=== PATIENT | male | born 1955 | race Two or more races ===

== ENCOUNTER 2018-03-12 10:47 | Emergency (ER) | payer OTHER ==
[~2018-03-12] VITALS: Ht 175.3 cm; Wt 72.6 kg
[2018-03-12 11:12] VITALS: BP 122/77
[2018-03-12 11:27] LABS: APPEARANCE,URINE CLEAR; BILIRUBIN, URINE NEGATIVE (NEGATIVE); COLOR,URINE PALE YELLOW; GLUCOSE, URINE (UA) NEGATIVE (NEGATIVE); KETONES,URINE NEGATIVE (NEGATIVE); LEUKOCYTE ESTERASE ,URINE NEGATIVE (NEGATIVE); NITRITE,URINE NEGATIVE (NEGATIVE); PH,URINE 6 (4.5-8.0); PROTEIN,URINE NEGATIVE (NEGATIVE); UROBILINOGEN,URINE NORMAL MG/DL (0.0-1.0)
[2018-03-12] MEDS ORDERED: DOXYCYCLINE MO100 MG ORAL (12:16)
[2018-03-12] MEDS ORDERED: IBUPROFEN400 MG ORAL (12:16)
[2018-03-12 12:20] VITALS: BP 122/77
--- NOTE | 2018-03-13 07:38 | Emergency Room Report ---
History of Present Illness General Chief Complaint: General Complaint Source: Patient Present Illness HPI Patient is a 62-year-old male who presented after increased skin rash. The patient had noticed increased blistering to his.. Area. Patient denies any prior history of similar rash. He denies prior history of diabetes. He denies any fever. He reports having a moderate dysuria. He denies any vomiting or diarrhea. The patient noticed gradual progression of discomfort. Allergies: Coded Allergies: No Known Allergies (Unverified , 03/12/18) Patient History Past Medical History: see triage record Reviewed Nursing Documentation: PMH: Agreed; PSxH: Agreed Nursing Documentation-PMH Past Medical History: No Stated History Review of Systems All Other Systems: negative except mentioned in HPI Physical Exam Vital Signs Date Time Temp Pulse Resp B/P (MAP) Pulse Ox O2 Delivery O2 Flow Rate FiO2 03/12/18 10:51 98.2 74 16 122/77 95 Room Air 98.2 General Appearance: well appearing, no apparent distress, alert, GCS 15, non- toxic Head: normocephalic, atraumatic ENT: hearing grossly normal, normal voice Neck: full range of motion, supple Respiratory: no respiratory distress, speaking full sentences Musculoskeletal: normal inspection, no calf tenderness Neurologic: normal inspection, alert, oriented x3, normal gait Psychiatric: mood/affect normal Skin: other - suprapubic follicular swelling, slight erythema, no fluctuance Medical Decision Making Diagnostic Impression: Primary Impression: Folliculitis ER Course Patient presented for skin rash. Differential diagnosis included was not limited to folliculitis, herpes, Fourniere's gangrene, abscess, hidradenitis suppuritiva among others. Patient has a benign exam and does not appear to require any further imaging or laboratory testing at this time. Urinalysis showed no evidence of urinary tract infection. The patient was given doxycycline for presumed folliculitis. Patient advised have area rechecked in the next 2 days. Patient is advised to return if any worsening condition or if any changes in status that are concerning. This report is dictated with [employer] posting specialist software which may occasionally lead to discrepancies related to use of this software. Last Vital Signs Date Time Temp Pulse Resp B/P (MAP) Pulse Ox O2 Delivery O2 Flow Rate FiO2 03/12/18 12:20 98.2 74 16 122/77 95 Room Air 98.2 Status: improved Disposition: HOME, SELF-CARE Condition: Stable Scripts Ibuprofen* (MOTRIN*) 400 Mg Tablet 400 MG ORAL Q8H, #30 TAB 0 Refills Prov: Royer Sen MD 03/12/18 Doxycycline Monohydrate* (DOXYCYCLINE MONOHYDRATE*) 100 Mg Capsule 100 MG ORAL Q12H, #14 CAP 0 Refills Prov: Royer Sen MD 03/12/18 Referrals: NOT CHOSEN IPA/MD,REFERRING Patient Instructions: Folliculitis Royer Sen MD Mar 13, 2018 07:38
== END 2018-03-12 12:20 | disposition home or self-care (01) ==
LOC: EMR 11:13
DX: L73.9 Follicular disorder, unspecified (principal)
CPT/HCPCS: 81003; 99283

== ENCOUNTER → 2018-08-12 | Emergency (ER) | payer OTHER ==
[~2018-08-12] VITALS: Ht 167.6 cm; Wt 90.7 kg
[~2018-08-12] MED LIST: DOXYCYCLINE MO100 MG ORAL; IBUPROFEN400 MG ORAL; LEVAQUIN750 MG ORAL; PROMETHAZINE-C118 M1 ORAL
--- NOTE | 2018-08-12 15:21 | NUR ---
ED Nurse Note: Pt came in from home due to coughing and generalized weakness x 1 month. Pain 5/10 kari. AOx4, VSS. Will cont to monitor.
[2018-08-12 15:22] VITALS: BP 106/79
--- NOTE | 2018-08-12 15:42 | Emergency Room Report ---
History of Present Illness General Chief Complaint: Upper Respiratory Illness Source: Patient Present Illness HPI 63-year-old male presents to the emergency department complaining of persistent 5/10 in severity painful cough and feeling short of breath with wheezing times one month. Patient denies fevers or chills. He reports increase in feeling tired. He denies chest pain, heart palpitations, dizziness, headaches or syncope. Patient denies significant past medical history the patient denies pain at this time. Denies recent travel. no appreciable ill contacts. Denies pain at this time. Allergies: Coded Allergies: No Known Allergies (Unverified , 03/12/18) Patient History Past Medical History: see triage record Past Surgical History: none Pertinent Family History: none Reviewed Nursing Documentation: PMH: Agreed; PSxH: Agreed Nursing Documentation-PMH Past Medical History: No Stated History Review of Systems All Other Systems: negative except mentioned in HPI Physical Exam Vital Signs Date Time Temp Pulse Resp B/P (MAP) Pulse Ox O2 Delivery O2 Flow Rate FiO2 08/12/18 15:11 98.2 70 20 106/79 98 Room Air Sp02 EP Interpretation: reviewed, normal General Appearance: no apparent distress, alert, GCS 15, non-toxic Head: normocephalic, atraumatic Eyes: bilateral eye normal inspection, bilateral eye PERRL ENT: hearing grossly normal, normal voice Neck: full range of motion Respiratory: chest non-tender, lungs clear, normal breath sounds, speaking full sentences Cardiovascular #1: regular rate, rhythm, no edema Gastrointestinal: non tender, soft Musculoskeletal: back normal, gait/station normal, normal range of motion, non- tender Neurologic: alert, oriented x3, responsive, motor strength/tone normal, sensory intact, speech normal, grossly normal Psychiatric: judgement/insight normal Skin: normal color, no rash, warm/dry, well hydrated Lymphatic: no adenopathy Medical Decision Making PA Attestation Dr. stewart is my supervising Physician whom patient management has been discussed with. Diagnostic Impression: Primary Impression: Pneumonia Qualified Codes: J18.1 - Lobar pneumonia, unspecified organism ER Course 63-year-old male presents to the emergency department complaining of persistent 5/10 in severity painful cough and feeling short of breath with wheezing times one month. Patient denies fevers or chills. He reports increase in feeling tired. He denies chest pain, heart palpitations, dizziness, headaches or syncope. Patient denies significant past medical history the patient denies pain at this time. Denies recent travel. no appreciable ill contacts. Denies pain at this time. Ddx considered but are not limited to URI, pneumonia, PE, strep pharyngitis, meningitis. Vital signs: Pt. is afebrile, the remaining VS are WNL H&PE are most consistent with URI- no meningeal signs, oropharynx is not involved, no evidence of bacterial infection at this time. ORDERS: -CBC,CMP, CK, Troponin: unremarkable ED INTERVENTIONS: None required at this time. DISCHARGE: At this time pt. is stable for d/c to home. Will provide printed patient care instructions, and any necessary prescriptions. Care plan and follow up instructions have been discussed with the patient prior to discharge. Labs Test 08/12/18 13:38 White Blood Count 10.3 K/UL (4.8-10.8) Red Blood Count 5.40 M/UL (4.70-6.10) Hemoglobin 15.9 G/DL (14.2-18.0) Hematocrit 48.3 % (42.0-52.0) Mean Corpuscular Volume 90 FL (80-99) Mean Corpuscular Hemoglobin 29.4 PG (27.0-31.0) Mean Corpuscular Hemoglobin Concent 32.8 G/DL (32.0-36.0) Red Cell Distribution Width 12.8 % (11.6-14.8) Platelet Count 221 K/UL (150-450) Mean Platelet Volume 8.1 FL (6.5-10.1) Neutrophils (%) (Auto) 65.6 % (45.0-75.0) Lymphocytes (%) (Auto) 20.5 % (20.0-45.0) Monocytes (%) (Auto) 7.4 % (1.0-10.0) Eosinophils (%) (Auto) 4.8 % (0.0-3.0) Basophils (%) (Auto) 1.7 % (0.0-2.0) Sodium Level 139 MMOL/L (136-145) Potassium Level 3.9 MMOL/L (3.5-5.1) Chloride Level 103 MMOL/L (98-107) Carbon Dioxide Level 25 MMOL/L (21-32) Anion Gap 11 mmol/L (5-15) Blood Urea Nitrogen 13 mg/dL (7-18) Creatinine 1.0 MG/DL (0.55-1.30) Estimat Glomerular Filtration Rate > 60 mL/min (>60) Glucose Level 102 MG/DL (74-106) Calcium Level 8.9 MG/DL (8.5-10.1) Total Bilirubin 0.3 MG/DL (0.2-1.0) Aspartate Amino Transf (AST/SGOT) 19 U/L (15-37) Alanine Aminotransferase (ALT/SGPT) 43 U/L (12-78) Alkaline Phosphatase 88 U/L (46-116) Total Creatine Kinase 99 U/L (26-308) Troponin I 0.000 ng/mL (0.000-0.056) Total Protein 7.7 G/DL (6.4-8.2) Albumin 3.7 G/DL (3.4-5.0) Globulin 4.0 g/dL Albumin/Globulin Ratio 0.9 (1.0-2.7) EKG Diagnostic Results EP Interpretation: Dr. Hurtado Rate: normal - 71 bpm Rhythm: NSR ST Segments: no acute changes ASA given to the pt in ED: No PA Scribe Text This Interpretation was scribed by NITIN Walsh. Chest X-Ray Diagnostic Results Chest X-Ray Diagnostic Results : Chest X-Ray Ordered: Yes # of Views/Limited/Complete: 1 View EP Interpretation: Yes NITIN Xray: Interpretation reviewed, by supervising MD, and agrees with findings. Interpretation: no consolidation, no pneumothorax, no acute cardiopulmonary disease, other - abnormal- preliminary questionable left lower lobe effusion Impression: Other - abnormal- preliminary questionable left lower lobe effusion Last Vital Signs Date Time Temp Pulse Resp B/P (MAP) Pulse Ox O2 Delivery O2 Flow Rate FiO2 08/12/18 15:22 98.2 70 20 106/79 98 Room Air Disposition: HOME, SELF-CARE Condition: Stable Scripts Codeine/Promethazine Hcl* (PROMETHAZINE-CODEINE SYRUP*) 118 Ml Syrup 5 ML ORAL Q6H PRN for For Cough, #120 ML 0 Refills Prov: Carli Walsh 08/12/18 Levofloxacin* (LEVAQUIN*) 750 Mg Tablet 750 MG ORAL DAILY for 7 Days, #7 TAB Prov: Carli Walsh 08/12/18 Patient Instructions: Upper Respiratory Infection, Adult Additional Instructions: Take medications as directed. Follow up with a Primary Care Provider in 3-5 days, even if your symptoms have resolved. --Please review list of primary care clinics, if you do not already have a primary care provider Return sooner to ED if new symptoms occur, or current symptoms become worse. - Please note that this Emergency Department Report was dictated using [employer] sh[employer] technology software, occasionally this can lead to erroneous entry secondary to interpretation by the dictation equipment. Carli Walsh Aug 12, 2018 15:42
[2018-08-12 15:58] LABS: BASOPHILS % (AUTO) 1.7 % (0.0-2.0); EOSINOPHILS % (AUTO) 4.8 % (0.0-3.0); HEMATOCRIT 48.3 % (42.0-52.0); HEMOGLOBIN 15.9 G/DL (14.2-18.0); LYMPHOCYTES % (AUTO) 20.5 % (20.0-45.0); MEAN CORPUSCULAR VOLUME 90 FL (80-99); MONOCYTES % (AUTO) 7.4 % (1.0-10.0); NEUTROPHILS % (AUTO) 65.6 % (45.0-75.0); PLATELET COUNT 221 K/UL (150-450); RED CELL DISTRIBUTION WIDTH 12.8 % (11.6-14.8); WHITE BLOOD COUNT 10.3 K/UL (4.8-10.8)
[2018-08-12 16:04] LABS: ANION GAP 11 mmol/L (5-15); BLOOD UREA NITROGEN 13 mg/dL (7-18); CALCIUM 8.9 MG/DL (8.5-10.1); CARBON DIOXIDE 25 MMOL/L (21-32); CHLORIDE 103 MMOL/L (98-107); POTASSIUM 3.9 MMOL/L (3.5-5.1); SODIUM 139 MMOL/L (136-145)
[2018-08-12 16:11] LABS: ALANINE AMINOTRANSFERASE 43 U/L (12-78); ALBUMIN 3.7 G/DL (3.4-5.0); ALBUMIN/GLOBULIN RATIO 0.9 (1.0-2.7); ALKALINE PHOSPHATASE 88 U/L (46-116); ASPARTATE AMINO TRANSFERASE 19 U/L (15-37); BILIRUBIN,TOTAL 0.3 MG/DL (0.2-1.0); CREATINE KINASE 99 U/L (26-308)
--- NOTE | 2018-08-12 16:54 | Diagnostic Imaging Report ---
EXAM: XR Chest, 1 View CLINICAL HISTORY: COUGH TECHNIQUE: Frontal view of the chest. COMPARISON: No relevant prior studies available. FINDINGS: Lungs: No confluent consolidation. Pleural space: Unremarkable. No pneumothorax. Heart: Mild cardiomegaly. Mediastinum: Prominent kodi Bones/joints: No acute fracture. IMPRESSION: No confluent consolidation.
== END | disposition home or self-care (01) ==
LOC: EMR 15:30
DX: J18.1 Lobar pneumonia, unspecified organism (principal)
CPT/HCPCS: 36415; 71045; 80053; 82550; 84484; 85025; 93005; 99284

== ENCOUNTER 2018-09-13 12:16 | Emergency (ER) | payer OTHER ==
[~2018-09-13] VITALS: Ht 170.2 cm; Wt 90.7 kg
--- NOTE | 2018-09-13 12:44 | NUR ---
ED Nurse Note: patient walked into ED from home c/o upper respiratory infection, congestion, coughing for 1 month,
[2018-09-13] MEDS ORDERED: Benzonatate 100mg Perles ORAL ONE (13:00)
[2018-09-13] MEDS ORDERED: Albuterol/Ipratropium 3ml neb HHN ONE ×2 (13:00→14:00)
--- NOTE | 2018-09-13 13:17 | Emergency Room Report ---
History of Present Illness General Chief Complaint: Upper Respiratory Illness Source: Patient Present Illness HPI 63-year-old male patient presents the ER complaining of cough and breathing difficulties times 1 month. Patient was previously seen here 1 month ago and discharged home with antibiotics and cough medicine to treat pneumonia. Reports symptoms have been present since that time. Reports dry cough. Reports cough worse at night. Denies history of HI or asthma. Reports chest pain that is reproducible with cough. Denies chest pain at rest. Denies history of high blood pressure or smoking. Denies fever, chest pain, shortness of breath. Denies recent travel. Denies sick contacts at home. Reports to not receive flu vaccine this year. Allergies: Coded Allergies: No Known Allergies (Unverified , 03/12/18) Patient History Past Medical History: see triage record Reviewed Nursing Documentation: PMH: Agreed; PSxH: Agreed Nursing Documentation-PMH Past Medical History: No Stated History Review of Systems All Other Systems: negative except mentioned in HPI Physical Exam Vital Signs Date Time Temp Pulse Resp B/P (MAP) Pulse Ox O2 Delivery O2 Flow Rate FiO2 09/13/18 12:34 99.0 83 20 117/80 93 Room Air Sp02 EP Interpretation: reviewed, normal General Appearance: well appearing, no apparent distress, alert, GCS 15, non- toxic Head: normocephalic, atraumatic Eyes: bilateral eye normal inspection, bilateral eye PERRL ENT: hearing grossly normal, normal pharynx, no angioedema, normal voice, uvula midline, moist mucus membranes Neck: full range of motion, no meningismus Respiratory: lungs clear, no rhonchi, no respiratory distress, no accessory muscle use, speaking full sentences, wheezing Cardiovascular #1: regular rate, rhythm, no edema Cardiovascular #2: 2+ radial (R), 2+ radial (L) Musculoskeletal: back normal, digits/nails normal, gait/station normal, normal range of motion, non-tender Neurologic: alert, oriented x3, responsive, motor strength/tone normal, sensory intact Psychiatric: mood/affect normal Skin: no rash Medical Decision Making PA Attestation Dr. Hurtado is my supervising Physician whom patient management has been discussed with. Diagnostic Impression: Primary Impression: Bronchitis Additional Impression: Atypical pneumonia ER Course Pt presents to ED c/o cough and breathing difficulties. DDX considered but are not limited to asthma, viral URI, influenza, bronchitis, pneumonia, CHF, pneumothorax. No rhonchi or rales, patient afebrile, low suspicion for pneumonia at this time , does not require x-rays or imaging. no tachycardia, no recent travel, low suspicion for PE per wells criteria. VITAL SIGNS are WNL, patient is afebrile. Ordered breathing treatment and medication. ER COURSE Patient provided with prednisone and cough medication. Duoneb breathing treatment provided. Patient reports symptoms improved following initial breathing treatment however requesting second breathing treatment, provided to patient. Following second breathing treatment patient states no longer having difficulty with breathing. Patient is resting comfortably in no acute distress. Chest x-ray appears improved from last time however due to continued symptoms will cover patient with azithromycin for atypical pneumonia. Will provide patient with Tamiflu to cover for possible influenza. Discussed patient care with Dr. Hurtado, agrees with assessment and treatment plan. ER precautions given. DISCHARGE: -Rx given for Prednisone. First dose provided in the ER begin taking tomorrow. -Rx provided for Albuterol MDI. -Rx provided for Tessalon Perles Rx provided for Tamiflu Rx provided for azithromycin At this time pt is stable for d/c to home. Patient is resting comfortably in no acute distress, nontoxic appearing, able to answer questions without difficulty. Patient to take medications as instructed Will provide with patient care instructions and any necessary prescriptions. Care plan and follow-up instructions provided. Patient instructed to follow-up with primary care provider in 3 - 5 days. Patient questions asked and answered. Patient reports understanding and agreement to treatment plan. ER precautions given. Patient instructed to return to ER immediately for any new or worsening of symptoms including but not limited to increasing SOB, persistent fever. - Please note that this Emergency Department Report was dictated using [employer] sales executive technology software, occasionally this can lead to erroneous entry secondary to interpretation by the dictation equipment. Chest X-Ray Diagnostic Results Chest X-Ray Diagnostic Results : Chest X-Ray Ordered: Yes # of Views/Limited/Complete: 1 View Indication: Chest Pain EP Interpretation: Yes NITIN Xray: Interpretation reviewed, by supervising MD, and agrees with findings. Interpretation: no consolidation, no effusion, no pneumothorax, no acute cardiopulmonary disease Impression: No acute disease NITIN Scribe Text Guero Wharton PA-C Last Vital Signs Date Time Temp Pulse Resp B/P (MAP) Pulse Ox O2 Delivery O2 Flow Rate FiO2 1/30/19 12:34 99.0 83 20 117/80 93 Room Air Status: improved Disposition: HOME, SELF-CARE Condition: Stable Scripts Azithromycin* (ZITHROMAX*) 250 Mg Tablet 250 MG ORAL DAILY, #6 TAB 0 Refills Take two tables once daily for 1 day, then one tablet once daily for 4 days. Prov: Dimitrios Wharton 09/13/18 Benzonatate* (TESSALON PERLE*) 100 Mg Capsule 100 MG ORAL THREE TIMES A DAY, #20 PERLE Prov: Dimitrios Wharton.Sandro 09/13/18 Oseltamivir Phosphate (Tamiflu) 75 Mg Capsule 75 MG ORAL TWICE A DAY for 5 Days, #10 CAP Prov: Dimitrios Wharton 09/13/18 Albuterol Sulfate* (ALBUTEROL SULFATE MDI*) 8.5 Gm Hfa.aer.ad 2 PUFF INH Q6H, #1 INH 0 Refills Prov: Dimitrios Wharton 09/13/18 Prednisone* (PREDNISONE*) 20 Mg Tablet 40 MG ORAL DAILY for 4 Days, #8 TAB Prov: Dimitrios Wharton 09/13/18 Patient Instructions: Acute Bronchitis, [id number], Community-Acquired Pneumonia, Adult, [id number], Influenza, Adult, [id number] Additional Instructions: Followup with primary care provider in 1-2 days. Discuss referral to pulmonology. Take medications as directed. Patient questions asked and answered. ER precautions given, patient instructed to return to ER immediately for any new or worsening of symptoms. Dimitrios Wharton Sep 13, 2018 13:17
[2018-09-13 13:25] VITALS: BP 117/80
--- NOTE | 2018-09-13 14:19 | Diagnostic Imaging Report ---
Indication: Cough Comparison: 08/12/2018 A single view chest radiograph was obtained. Findings: No definite infiltrate or pulmonary vascular congestion identified. The kodi appear prominent likely vascular in nature. The heart is enlarged. The aorta is mildly enlarged consistent with atherosclerotic vascular disease. The bones are osteopenic. Impression: No acute disease
[2018-09-13] MEDS ORDERED: ALBUTEROL SULF8.5 GM INH (14:40)
[2018-09-13] MEDS ORDERED: TESSALON PERLE100 MG ORAL (14:40)
[2018-09-13] MEDS ORDERED: ZITHROMAX250 MG ORAL (14:40)
[2018-09-13] MEDS ORDERED: TAMIFLU75 MG ORAL (14:40)
[2018-09-13] MEDS ORDERED: PREDNISONE20 MG ORAL (14:40)
--- NOTE | 2018-09-13 14:50 | NUR ---
ED Nurse Note: Pt is cleared for discharge per ERMD. Discharge instrcution/paper/ prescription given and explained to the patient, patient verbalized understanding. pt is alert and oriented x4, ambulated out of ED steady gait with all belongigns. pt is stable for DC. VSS. pt ID band removed.
[2018-09-13 16:10] VITALS: BP 117/80
== END 2018-09-13 14:50 | disposition home or self-care (01) ==
LOC: EMR 13:00
DX: J40 Bronchitis, not specified as acute or chronic (principal); J18.9 Pneumonia, unspecified organism
CPT/HCPCS: 71045; 94664; 99284; J7512; J7620

== ENCOUNTER 2018-10-02 17:01 | Emergency (ER) | payer OTHER ==
[~2018-10-02] VITALS: Ht 172.7 cm; Wt 90.7 kg
[~2018-10-02 17:01] MED LIST changes: +ALBUTEROL SULF8.5 GM INH; +PREDNISONE20 MG ORAL; +TAMIFLU75 MG ORAL; +TESSALON PERLE100 MG ORAL; +ZITHROMAX250 MG ORAL
--- NOTE | 2018-10-02 17:20 | NUR ---
ED Nurse Note: PT WALKED IN TO ER TODAY FROM HOME. AOX4. PT C/O PERSISTENT COUGH X 2 MONTHS. PT STATES THIS IS HIS THIRD VISIT TO ER. PT WAS LAST DISCHARGE WITH RX FOR LEVAQUIN AND COUGH SYRUP BUT STATES SYMPTOMS ARE UNRELIEVED DESPITE COMPLIANCE WITH MEDICATIONS. WHEEZING AUSCULTATED IN ALL LOBES. NO SIGNS OF RESPIRATORY DISTRESS OR RETRACTIONS NOTED.
[2018-10-02 17:22] VITALS: BP 122/84
[2018-10-02] MEDS ORDERED: Albuterol/Ipratropium 3ml neb HHN ONE (17:30)
--- NOTE | 2018-10-02 17:45 | Emergency Room Report ---
History of Present Illness General Chief Complaint: Upper Respiratory Illness Source: Patient (Dimitrios Wharton) Present Illness HPI 63-year-old male patient presents the ER complaining of cough and wheezing for the past 2 weeks. Patient previously seen in the ER twice for similar symptoms. Reports symptoms partially resolved however returned recently. States that he follow with his primary care provider was given breathing medications. States that he completed the medication 6 days ago and has not taken anything since that time. Denies fever, chest pain, abdominal pain. Reports cough with sputum. Denies recent travel. denies smoking. Patient is requesting nebulizer machine. (Dimitrios Wharton) Allergies: Coded Allergies: No Known Allergies (Unverified , 03/12/18) Patient History Past Medical History: see triage record Reviewed Nursing Documentation: PMH: Agreed; PSxH: Agreed (Dimitrios Wharton) Nursing Documentation-PMH Past Medical History: No History, Except For (Dimitrios Wharton) Review of Systems All Other Systems: negative except mentioned in HPI (Dimitrios Wharton) Physical Exam Vital Signs Date Time Temp Pulse Resp B/P (MAP) Pulse Ox O2 Delivery O2 Flow Rate FiO2 10/02/18 17:09 98.6 76 20 120/85 95 Room Air 10/02/18 17:31 21 Sp02 EP Interpretation: reviewed, normal General Appearance: well appearing, no apparent distress, alert, GCS 15, non- toxic Head: normocephalic, atraumatic Eyes: bilateral eye normal inspection, bilateral eye PERRL ENT: hearing grossly normal, normal pharynx, no angioedema, normal voice, uvula midline, moist mucus membranes Neck: full range of motion Respiratory: lungs clear, normal breath sounds, no rhonchi, no respiratory distress, no accessory muscle use, speaking full sentences, wheezing Cardiovascular #1: regular rate, rhythm, no edema Cardiovascular #2: 2+ radial (R), 2+ radial (L) Gastrointestinal: non tender, soft, no mass, non-distended, no guarding, no rebound Genitourinary: no CVA tenderness Musculoskeletal: back normal, digits/nails normal, gait/station normal, normal range of motion, non-tender, no calf tenderness, Merle's Sign negative Neurologic: alert, oriented x3, responsive, motor strength/tone normal, sensory intact Skin: no rash (Dimitrios Wharton) Medical Decision Making PA Attestation Dr. Villaseñor is my supervising Physician whom patient management has been discussed with. (Dimitrios Wharton) Diagnostic Impression: Primary Impression: Chronic bronchitis Qualified Codes: J42 - Unspecified chronic bronchitis Additional Impressions: Bronchospasm Eosinophilia ER Course Pt presents to ED c/o cough and wheezing. DDX considered but are not limited to asthma, viral URI, influenza, bronchitis, pneumonia, PE, WA. Low suspicion for PE per well's criteria. VITAL SIGNS are WNL, patient is afebrile. Ordered breathing treatment and medication. ER COURSE Patient provided with prednisone and cough medication. Duoneb breathing treatment provided. Following treatment patient states breathing symptoms have improved however requesting second breathing treatment. CBC and CMP unremarkable, no elevation in magnesium. EKG shows no ST elevations or atrial fibrillation, no tachycardia , chest x-ray negative for acute disease, no focal consolidation consistent with pneumonia, CXR consistent with previous visits, low suspicion of cardiac etiology of symptoms, does not require cardiac workup at this time. Patient denies chest pain. Suspicion for WA or PE. Provided with albuterol breathing treatment. Following second breathing treatment patient reports symptoms have improved. Lung sounds improved auscultation, wheezing still noted however patient has no difficulty breathing. Okay for outpatient follow-up and treatment. Advised patient to follow-up with primary care provider to get referral to pulmonology specialist. Will provide patient with medication for cough and breathing symptoms and ER precautions given. DISCHARGE: -Rx given for Prednisone. -Rx provided for Albuterol MDI and HHN Rx provided for Qvar Rx provided for guaifenesin Rx provided for nebulizer machine At this time pt is stable for d/c to home. Patient is resting comfortably in no acute distress, nontoxic appearing, able to answer questions without difficulty. Patient to take medications as instructed Will provide with patient care instructions and any necessary prescriptions. Care plan and follow-up instructions provided. Patient instructed to follow-up with primary care provider in 3 - 5 days. Patient questions asked and answered. Patient reports understanding and agreement to treatment plan. ER precautions given. Patient instructed to return to ER immediately for any new or worsening of symptoms including but not limited to increasing SOB, persistent fever. - Please note that this Emergency Department Report was dictated using [employer] urologist technology software, occasionally this can lead to erroneous entry secondary to interpretation by the dictation equipment. Labs Test 10/02/18 18:54 White Blood Count 10.5 K/UL (4.8-10.8) Red Blood Count 5.15 M/UL (4.70-6.10) Hemoglobin 15.2 G/DL (14.2-18.0) Hematocrit 45.5 % (42.0-52.0) Mean Corpuscular Volume 88 FL (80-99) Mean Corpuscular Hemoglobin 29.4 PG (27.0-31.0) Mean Corpuscular Hemoglobin Concent 33.3 G/DL (32.0-36.0) Red Cell Distribution Width 12.7 % (11.6-14.8) Platelet Count 202 K/UL (150-450) Mean Platelet Volume 7.8 FL (6.5-10.1) Neutrophils (%) (Auto) 62.1 % (45.0-75.0) Lymphocytes (%) (Auto) 21.1 % (20.0-45.0) Monocytes (%) (Auto) 8.0 % (1.0-10.0) Eosinophils (%) (Auto) 7.6 % (0.0-3.0) Basophils (%) (Auto) 1.2 % (0.0-2.0) Sodium Level 137 MMOL/L (136-145) Potassium Level 3.8 MMOL/L (3.5-5.1) Chloride Level 103 MMOL/L (98-107) Carbon Dioxide Level 24 MMOL/L (21-32) Anion Gap 10 mmol/L (5-15) Blood Urea Nitrogen 16 mg/dL (7-18) Creatinine 1.1 MG/DL (0.55-1.30) Estimat Glomerular Filtration Rate > 60 mL/min (>60) Glucose Level 111 MG/DL (74-106) Calcium Level 8.3 MG/DL (8.5-10.1) Magnesium Level 2.0 MG/DL (1.8-2.4) Total Bilirubin 0.3 MG/DL (0.2-1.0) Aspartate Amino Transf (AST/SGOT) 16 U/L (15-37) Alanine Aminotransferase (ALT/SGPT) 32 U/L (12-78) Alkaline Phosphatase 91 U/L (46-116) Total Protein 7.6 G/DL (6.4-8.2) Albumin 3.5 G/DL (3.4-5.0) Globulin 4.1 g/dL Albumin/Globulin Ratio 0.9 (1.0-2.7) (Dimitrios Wharton P.A.) ER Course Please see above notes. Patient discussed in detail. I agree with evaluation and treatment plan. (Mike Villaseñor MD) EKG Diagnostic Results Rate: normal Rhythm: NSR ST Segments: no acute changes ASA given to the pt in ED: No PA Scribe Text Guero Wharton PA-C (Dimitrios Wharton P.A.) Rhythm Strip Diag. Results EP Interpretation: yes Rate: 73 Rhythm: NSR, no PVC's, no ectopy PA Scribe Text Guero Wharton PA-C (Dimitrios Wharton P.A.) Chest X-Ray Diagnostic Results Chest X-Ray Diagnostic Results : Chest X-Ray Ordered: Yes # of Views/Limited/Complete: 1 View Indication: Chest Pain EP Interpretation: Yes PA Xray: Interpretation reviewed, by supervising MD, and agrees with findings. Interpretation: no consolidation, no effusion, no pneumothorax, no acute cardiopulmonary disease Impression: No acute disease PA Scribe Text Guero Wharton PA-C (Dimitrios Wharton P.A.) Last Vital Signs Date Time Temp Pulse Resp B/P (MAP) Pulse Ox O2 Delivery O2 Flow Rate FiO2 10/02/18 17:40 81 18 96 Room Air 21 10/02/18 17:22 98.5 122/84 Status: improved (Dimitrios Wharton P.A.) Disposition: HOME, SELF-CARE Condition: Stable Scripts Guaifenesin* (ADULT WAL-TUSSIN*) 100 Mg/5 Ml Liquid 5 ML ORAL Q4H, #118 ML Prov: Dimitrios Wharton P.A. 10/02/18 Albuterol Sulfate* (ALBUTEROL SULFATE MDI*) 8.5 Gm Hfa.aer.ad 2 PUFF INH Q6H, #1 INH 0 Refills Prov: Dimitrios Wharton P.A. 10/02/18 Albuterol Sulfate* (ALBUTEROL SULFATE HHN*) 2.5 Mg/3 Ml Vial.neb 3 ML INH Q6H PRN for Shortness of Breath, #30 EA 0 Refills Prov: Dimitrios Wharton 10/02/18 Nebulizer (ALTERA NEBULIZER) 1 Each Each EACH , #1 Prov: Dimitrios Wharton 10/02/18 Beclomethasone Dipropionate 40MCG Oral Inh (QVAR 40*) 7.3 Gm Aer.w.adap 1 PUFF INH TWICE A DAY for 30 Days, #1 PACK 0 Refills Prov: Dimitrios Wharton 10/02/18 Prednisone* (PREDNISONE*) 20 Mg Tablet 40 MG ORAL DAILY for 4 Days, #8 TAB Prov: Dimitrios Wharton 10/02/18 Referrals: [facility],REFERRING (PCP) Patient Instructions: Chronic Bronchitis Additional Instructions: Followup with primary care provider in 3 -5 days. Discussed referral to pulmonology specialist. Take medications as directed. Patient questions asked and answered. ER precautions given, patient instructed to return to ER immediately for any new or worsening of symptoms. Dimitrios Wharton Oct 02, 2018 17:45 Mike Villaseñor MD Oct 03, 2018 03:11
[2018-10-02] MEDS ORDERED: Albuterol ud Inhalation HHN ONE (18:15)
--- NOTE | 2018-10-02 18:57 | NUR ---
ED Nurse Note: BLOOD DRAWN AND SENT TO LAB.
--- NOTE | 2018-10-02 19:01 | NUR ---
ED Nurse Note: REPORT GIVEN TO RUIZ SOLANO.
[2018-10-02 19:10] VITALS: BP 128/81
[2018-10-02 19:19] LABS: BASOPHILS % (AUTO) 1.2 % (0.0-2.0); EOSINOPHILS % (AUTO) 7.6 % (0.0-3.0); HEMATOCRIT 45.5 % (42.0-52.0); HEMOGLOBIN 15.2 G/DL (14.2-18.0); LYMPHOCYTES % (AUTO) 21.1 % (20.0-45.0); MEAN CORPUSCULAR VOLUME 88 FL (80-99); NEUTROPHILS % (AUTO) 62.1 % (45.0-75.0); PLATELET COUNT 202 K/UL (150-450); RED BLOOD COUNT 5.15 M/UL (4.70-6.10); RED CELL DISTRIBUTION WIDTH 12.7 % (11.6-14.8); WHITE BLOOD COUNT 10.5 K/UL (4.8-10.8)
[2018-10-02 19:27] LABS: ANION GAP 10 mmol/L (5-15); BLOOD UREA NITROGEN 16 mg/dL (7-18); CALCIUM 8.3 MG/DL (8.5-10.1); CARBON DIOXIDE 24 MMOL/L (21-32); CHLORIDE 103 MMOL/L (98-107); CREATININE 1.1 MG/DL (0.55-1.30); POTASSIUM 3.8 MMOL/L (3.5-5.1); SODIUM 137 MMOL/L (136-145)
[2018-10-02 19:32] LABS: ALANINE AMINOTRANSFERASE 32 U/L (12-78); ALBUMIN 3.5 G/DL (3.4-5.0); ALBUMIN/GLOBULIN RATIO 0.9 (1.0-2.7); ALKALINE PHOSPHATASE 91 U/L (46-116); ASPARTATE AMINO TRANSFERASE 16 U/L (15-37); BILIRUBIN,TOTAL 0.3 MG/DL (0.2-1.0)
[2018-10-02] MEDS ORDERED: QVAR7.3 GM INH (19:45)
[2018-10-02] MEDS ORDERED: PREDNISONE20 MG ORAL (19:45)
[2018-10-02] MEDS ORDERED: ADULT WAL-100 MG/5 M ORAL (19:47)
[2018-10-02] MEDS ORDERED: ALBUTEROL SULF8.5 GM INH (19:47)
[2018-10-02] MEDS ORDERED: ALTERA NEBULIZ1 EACH MC (19:47)
[2018-10-02] MEDS ORDERED: ALBUTEROL2.5 MG/3 M INH (19:47)
--- NOTE | 2018-10-02 20:00 | NUR ---
ER DISCHARGE NOTE: Patient is cleared to be discharged per ERMD, pt is aox4, on room air, with stable vital signs. pt was given dc and prescription instructions, pt was able to verbalize understanding, pt id band and iv site removed without complications. pt is able to ambulate with steady gait. pt took all belongings.
[2018-10-02 20:04] VITALS: BP 123/84
[2018-10-02 20:05] VITALS: BP 123/84
--- NOTE | 2018-10-03 08:45 | Diagnostic Imaging Report ---
Indication: Cough Technique: One view of the chest Comparison: 09/13/2018 Findings: Lungs and pleural spaces are clear. The heart size is normal. No significant interim change Impression: Negative
--- NOTE | 2018-10-03 15:30 | Cardiology Report ---
APPROVED REPORT EKG Measurement Heart [id number] Normal sinus rhythm Low voltage QRS Borderline ECG
== END 2018-10-02 20:08 | disposition home or self-care (01) ==
LOC: EMR 17:30
DX: J42 Unspecified chronic bronchitis (principal); J98.01 Acute bronchospasm; D72.1 Eosinophilia; R07.9 Chest pain, unspecified
CPT/HCPCS: 36415; 71045; 80053; 83735; 85025; 93005; 94640; 99284; J7512; J7620